=== PATIENT | female | born 1965 | race Two or more races ===

== ENCOUNTER 2019-03-05 10:00 | Outpatient (CLI) | payer OTHER | END 2019-03-05 23:59 | disposition home or self-care (01) | LOC: WOU 10:00 | PROVIDERS: ATTEND Surgery | DX: I89.0 Lymphedema, not elsewhere classified (principal); C50.411 Malignant neoplasm of upper-outer quadrant of right female breast; Z92.21 Personal history of antineoplastic chemotherapy | CPT/HCPCS: G0463 ==